=== PATIENT | female | born 2000 | race African-American/Black ===

== ENCOUNTER 2023-01-05 01:42 | Emergency (ER) | payer BC, OTHER ==
[~2023-01-05] VITALS: Ht 152.4 cm; Wt 95.3 kg
[2023-01-05 01:52] VITALS: BP 138/77; TEMP 98.5
[2023-01-05 02:12] LABS: PREGNANCY TEST URINE QUAL NEGATIVE (NEGATIVE)
[2023-01-05] MEDS ORDERED: oxyCODONE/APAP (5/325 MG) 1 UDTAB TABLET ONE (02:29)
[2023-01-05] MEDS ORDERED: KETOROLAC TROMETHAMINE INJ 30 MG/ML VIAL ONE (02:29)
[2023-01-05] MEDS ORDERED: oxyCODONE/APAP (5/325 MG) 1 UDTAB TABLET PO ONE (02:30)
[2023-01-05] MEDS ORDERED: KETOROLAC TROMETHAMINE INJ 30 MG/ML VIAL IM ONE (02:30)
[2023-01-05] MEDS ORDERED: ACETAMINOPHEN ES 500 MG TABLET ONE (02:37)
[2023-01-05] MEDS ORDERED: ACETAMINOPHEN 325 MG TABLET PO ONE (03:00)
[2023-01-05] MEDS ORDERED: AMOX500C2 PO (03:08)
[2023-01-05] MEDS ORDERED: IBUP-1958 PO (03:08)
[2023-01-05 05:10] VITALS: O2SAT 98
== END 2023-01-05 05:11 ==
LOC: ER 01:44
DX: K08.89 Other specified disorders of teeth and supporting structures (principal); F32.A Depression, unspecified; F41.9 Anxiety disorder, unspecified
CPT/HCPCS: 99285; 96372; 84703; J1885

== ENCOUNTER 2023-01-09 16:15 | Emergency (ER) | payer BC, OTHER ==
[~2023-01-09] VITALS: Ht 152.4 cm; Wt 95.3 kg
[~2023-01-09 16:15] MED LIST: AMOX500C2 PO; IBUP-1958 PO
[2023-01-09] MEDS ORDERED: IV NS 0.9% 1,000 ML BAG IV ONE (17:00)
[2023-01-09] MEDS ORDERED: GABAPENTIN 100 MG CAPSULE PO ONE (17:00)
[2023-01-09 17:31] LABS: BASOPHILS % (AUTO) 0.5 % (0.0-2.0); EOSINOPHILS # (AUTO) 0.3 K/uL (0.0-0.7); EOSINOPHILS % (AUTO) 3.3 % (0.0-6.0); HEMATOCRIT 38 % (33-45); HEMOGLOBIN 12.7 g/dL (11.5-14.8); LYMPHOCYTES # (AUTO) 3.3 K/uL (0.8-4.8); LYMPHOCYTES % (AUTO) 34.6 % (20.0-44.0); MEAN CORPUSCULAR HEMOGLOBIN 28 PG (26.0-33.0); MEAN CORPUSCULAR HGB CONC 33 g/dl (31.0-36.0); MEAN CORPUSCULAR VOLUME 85 fL (82-100); MONOCYTES # (AUTO) 0.8 K/uL (0.1-1.30); MONOCYTES % (AUTO) 8.2 % (2.0-12.0); NEUTROPHILS # (AUTO) 5.2 K/uL (1.8-8.9); NEUTROPHILS % (AUTO) 53.4 % (43.0-81.0); PLATELET COUNT (AUTO) 411 K/uL (150-450); RED BLOOD CELL COUNT(AUTO) 4.47 MIL/uL (4.0-5.2); RED CELL DISTRIBUTION WIDTH 15.2 % (11.5-15.0); WHITE BLOOD COUNT (AUTO) 9.7 K/uL (4.3-11.0)
[2023-01-09 17:36] LABS: CALCIUM, SERUM 9.7 mg/dL (8.5-10.1); CARBON DIOXIDE 27 mmol/L (21-32); CHLORIDE 103 mmol/L (98-107); GLUCOSE 102 mg/dL (74-106); POTASSIUM 3.8 mmol/L (3.5-5.1); SODIUM SERUM 136 mmol/L (136-145); UREA NITROGEN, BLOOD 17 mg/dL (7-18)
[2023-01-09] MEDS ORDERED: GABAPENTIN 300 MG CAPSULE ONE (17:38)
[2023-01-09 17:42] LABS: ALANINE AMINOTRANSFERASE 38 U/L (12-78); ALCOHOL, BLOOD < 3 mg/dL (0-10); ALKALINE PHOSPHATASE 81 U/L (46-116); ASPARTATE AMINOTRANSFERASE 20 U/L (15-37); BILIRUBIN,DIRECT 0.1 mg/dL (0.0-0.2); BILIRUBIN,TOTAL 0.1 mg/dL (0.2-1.0); TOTAL PROTEIN, SERUM 7.8 g/dL (6.4-8.2)
[2023-01-09 18:05] LABS: INR 0.97 (0.91-1.10); PARTIAL THROMBOPLASTIN TIME 25.1 SEC (24.3-34.3); PROTHROMBIN TIME 10.3 SECS (9.2-11.1)
[2023-01-09 18:58] VITALS: BP 114/60; TEMP 98.2; O2SAT 99
== END 2023-01-09 18:59 | disposition home or self-care (01) ==
LOC: ER 16:32
DX: G40.909 Epilepsy, unspecified, not intractable, without status epilepticus (principal); F32.A Depression, unspecified; F41.9 Anxiety disorder, unspecified
CPT/HCPCS: 99284; 96360; 93005; 85025; 80048; 80076; 36415; 85730; 80320; J7030; G0480